=== PATIENT | male | born 2000 | race Hispanic/Latino ===

== ENCOUNTER 2019-08-30 03:05 | Emergency (ER) | payer BC ==
[~2019-08-30] VITALS: Ht 182.9 cm; Wt 97.5 kg
--- NOTE | 2019-08-30 03:40 | Emergency Department Note ---
History of Present Illnes History of Present Illness Chief Complaint: Eye, Ear, Nose, Throat, Dental History of Present Illness This is a 19 year old male tates he ate pizza Friday at about 1700 and ever since then he has felt like something has been stuck in his throat. Patient states he tested positive for COVID-19 August 16. Patient states he has been coughing due to food in his throat. No distress noted at this time. states is able to drink water and eat foods that are light. Historian: Patient Arrival Mode: Car Onset (how long ago): day(s) (2) Location: throat Quality: foreign body sensation Radiation: Reports non-radiation Severity: moderate Onset quality: sudden Duration (how long): day(s) (2) Timing of current episode: constant Progression: unchanged Chronicity: new Context: Reports recent illness (covid + ); Denies recent surgery Relieving factors: none Exacerbating factors: none Associated symptoms: Reports denies other symptoms Past Medical/Family History Physician Review I have reviewed the patient's past medical and family history. Any updates have been documented here. Past Medical History Recent Fever: No Clinical Suspicion of Infectio: No New/Unexplained Change in Ment: No Other Medical History: SEIZURES Past Surgical History: None Social History Smoking Cessation: Never Smoker Counseling Performed: No Alcohol Use: None Any Illegal Drug Use: No Family History Family history of heart diseas: No Other Last Tetanus: UTD Any Pre-Existing Lines (PICC,: No Review of Systems Review of Systems Constitutional: Reports no symptoms EENTM: Reports as per HPI Cardiovascular: Reports no symptoms Respiratory: Reports no symptoms Gastrointestinal: Reports no symptoms Genitourinary: Reports no symptoms Musculoskeletal: Reports no symptoms Integumentary: Reports no symptoms Neurological: Reports no symptoms Psychological: Reports no symptoms Endocrine: Reports no symptoms Hematological/Lymphatic: Reports no symptoms Physical Exam Related Data Allergies: Coded Allergies: No Known Allergies (Unverified , 08/30/19) Triage Vital Signs Vital Signs Date Time Temp Pulse Resp B/P (MAP) Pulse Ox O2 Delivery O2 Flow Rate FiO2 08/30/19 03:15 98.6 80 20 141/65 100 Room Air Vital signs reviewed: Yes Physical Exam CONSTITUTIONAL Constitutional: Present well-developed, Present well-nourished HENT HENT: Present normocephalic, Present atraumatic, Present oropharynx clear/moist, Present nose normal HENT L/R: Present left ext ear normal, Present right ext ear normal EYES Eyes: Reports PERRL, Reports conjunctivae normal NECK Neck: Present ROM normal PULMONARY Pulmonary: Present effort normal, Present breath sounds normal CARDIOVASCULAR Cardiovascular: Present regular rhythm, Present heart sounds normal, Present capillary refill normal, Present normal rate GASTROINTESTINAL Abdominal: Present soft, Present nontender, Present bowel sounds normal GENITOURINARY Genitourinary: Present exam deferred SKIN Skin: Present warm, Present dry MUSCULOSKELETAL Musculoskeletal: Present ROM normal NEUROLOGICAL Neurological: Present alert, Present oriented x 3, Present no gross motor or sensory deficits PSYCHOLOGICAL Psychological: Present mood/affect normal, Present judgement normal Results Laboratory Lab results reviewed: Yes Assessment & Plan Medical Decision Making MDM pt with foreign body sensation(stuck food) in throat ct soft tissue neck ordered to eval for food bolus lodged in throat Assessment & Plan Final Impression: (1) Foreign body sensation in throat Depart Disposition: HOME, SELF-CARE Last Vital Signs Date Time Temp Pulse Resp B/P (MAP) Pulse Ox O2 Delivery O2 Flow Rate FiO2 08/30/19 03:21 74 20 123/77 100 08/30/19 03:15 98.6 Room Air MILES HARGROVE MD Aug 30, 2019 03:40
--- NOTE | 2019-08-30 05:25 | Diagnostic Imaging Report ---
Examination:CT SOFT TISSUE NECK WO History: Foreign body sensation. Comparison studies: None Technique: Axial images from the skull base to the thoracic inlet with coronal and sagittal reformats. Dose modulation, iterative reconstruction, and/or weight based adjustment of the mA/kV was utilized to reduce the radiation dose to as low as reasonably achievable. Findings: Evaluation of the neck is limited due to the absence of intravenous contrast. In spite of this limitation, Soft tissues: No abnormalities. Aerodigestive tract: No abnormality. Lymph nodes: No radiographically significant adenopathy. Thyroid gland: Normal in size and homogeneous. Submandibular glands: Normal in size and homogeneous. Parotid glands: Normal in size and homogeneous. Orbits: No abnormalities. Paranasal sinuses: Clear. Temporal bones: No abnormalities. Skull base and facial bones: Intact. Cervical spine: No disc bulge or herniation or foraminal or canal stenosis. IMPRESSION: No radiopaque foreign body in the pharynx or larynx. 1. Signed by: Dr. Rola Roque M.D. on 08/30/2019 5:22 AM
== END 2019-08-30 06:22 | disposition home or self-care (01) ==
LOC: ER 03:33
DX: R09.89 Other specified symptoms and signs involving the circulatory and respiratory systems (principal)
CPT/HCPCS: 70490; 99283

== ENCOUNTER → 2019-10-19 | Day surgery (SDC) | payer BC ==
[~2019-10-19] MED LIST: FENTANYL CITRATE/PF 100MCG/2 ML INJ ONE; HYDROXYZINE HCL25 MG PO; LIDOCAINE HCL 2% LOCAL INJ 5 ML SDV VIAL INJ ONE; METOCLOPRAMIDE HCL 10 MG/2ML VIAL ONE; METOCLOPRAMIDE10 MG PO; MIDAZOLAM HCL 2 MG/2 ML VIAL ONE; PANTOPRAZOLE 40 MG 10ML VIAL ONE; PROPOFOL IV EMULSION 10 MG/ML 20 ML VIAL ONE; PROTONIX20 MG PO; [UNRECOGNIZED DRUG - REMARK] PO
[2019-10-19 16:00] VITALS: BP 115/70
--- NOTE | 2019-10-19 16:36 | Operative Report ---
DATE OF PROCEDURE: 10/19/2019 SURGEON: Freddie Cervantes MD PROCEDURE: EGD with biopsies. INDICATIONS FOR EGD: Upper abdominal pain, heartburn, excessive belching, bloating. MEDICATIONS: The patient was done under MAC, please see anesthesiologist's note. PROCEDURE IN DETAIL: With the patient in the left lateral decubitus position, a flexible fiberoptic Olympus gastroscope was introduced into the esophagus under direct visualization without any difficulty. An erosion was noted in the distal esophagus. There was a nodule noted at the GE junction that was biopsied. The scope was then advanced with ease into the stomach. Mucosa overlying the antrum and the body revealed some patchy erythema and [id number] edema, and biopsies were obtained and sent to stain for H. pylori. Pylorus was of normal contour and shape, was intubated with ease and the scope was advanced all the way to the second portion of the duodenum. Biopsies were obtained from the proximal second portion and duodenal bulb to rule out sprue. The scope was then withdrawn back into the stomach and retroflexed, and mucosa overlying the fundus and the cardia appeared to be within normal limits. The scope was then straightened out, it was subsequently withdrawn, and the patient tolerated the procedure well. IMPRESSION: 1. Erosive distal esophagitis. 2. Nodule GE junction, biopsied. 3. Gastritis, biopsied, biopsies sent to stain for Helicobacter pylori. 4. Rule out sprue. PLAN: Follow up histology. Increase Protonix to 40 mg one p.o. before meals b.i.d. Freddie Cervantes MD [facility] /[id number] cc: Linden Hopper MD
== END | disposition home or self-care (01) ==
LOC: OR 12:28
PROVIDERS: ATTEND Internal Medicine Gastroenterology
DX: K29.80 Duodenitis without bleeding (principal); K59.09 Other constipation; K21.0 Gastro-esophageal reflux disease with esophagitis; K29.70 Gastritis, unspecified, without bleeding
CPT/HCPCS: 43239; C9113; J2001; J2250; J2704; J2765; J3010

== ENCOUNTER 2019-12-22 11:14 | Emergency (ER) | payer BC ==
[~2019-12-22] VITALS: Ht 180.3 cm; Wt 79.4 kg
--- NOTE | 2019-12-22 11:40 | Emergency Department Note ---
History of Present Illnes History of Present Illness Chief Complaint: Back Pain History of Present Illness This is a 19 year old male Chief Complaint Comment PATIENT IN FROM HOME WITH COMPLAINTS OF LEFT FLANK PAIN, RADIATING TO ABDOMEN AND DOWN LEG; RATES PAIN 8/10. PATIENT RATES PAIN 8/10, DENIES NAUSEA, VOMITING, DIARRHEA, OR URINARY SYMPTOMS. Historian: Patient Arrival Mode: Car Security Consultant Required: No Onset (how long ago): hour(s) (4) Location: R mid back Quality: Sharp Radiation: Reports non-radiation Severity: moderate Onset quality: sudden Duration (how long): hour(s) (4) Timing of current episode: constant Progression: unchanged Chronicity: new Context: Denies recent illness, Denies recent surgery Relieving factors: none Exacerbating factors: none Associated symptoms: Reports denies other symptoms Treatments prior to arrival: none Past Medical/Family History Physician Review I have reviewed the patient's past medical and family history. Any updates have been documented here. Past Medical History Recent Fever: No Clinical Suspicion of Infectio: Yes New/Unexplained Change in Ment: No Past Medical History: Seizure Disorder, GERD Other Medical History: SEIZURES Past Surgical History: None Social History Physically hurt or threatened: No Other Last Tetanus: UTD Review of Systems Review of Systems Constitutional: Reports no symptoms EENTM: Reports no symptoms Cardiovascular: Reports no symptoms Respiratory: Reports no symptoms Gastrointestinal: Reports no symptoms Genitourinary: Reports no symptoms Musculoskeletal: Reports as per HPI Integumentary: Reports no symptoms Neurological: Reports no symptoms Psychological: Reports no symptoms Endocrine: Reports no symptoms Hematological/Lymphatic: Reports no symptoms Physical Exam Related Data Allergies: Coded Allergies: famotidine (Verified Allergy, Severe, SWELLING, 12/22/19) Triage Vital Signs Vital Signs Date Time Temp Pulse Resp B/P (MAP) Pulse Ox O2 Delivery O2 Flow Rate FiO2 12/22/19 11:26 100.1 95 20 132/80 99 Room Air Vital signs reviewed: Yes Physical Exam CONSTITUTIONAL Constitutional: Present well-developed, Present well-nourished HENT HENT: Present normocephalic, Present atraumatic, Present oropharynx clear/moist, Present nose normal HENT L/R: Present left ext ear normal, Present right ext ear normal EYES Eyes: Reports PERRL, Reports conjunctivae normal NECK Neck: Present ROM normal PULMONARY Pulmonary: Present effort normal, Present breath sounds normal CARDIOVASCULAR Cardiovascular: Present regular rhythm, Present heart sounds normal, Present capillary refill normal, Present normal rate GASTROINTESTINAL Abdominal: Present soft, Present nontender, Present bowel sounds normal GENITOURINARY Genitourinary: Present exam deferred SKIN Skin: Present warm, Present dry MUSCULOSKELETAL Musculoskeletal: Present ROM normal, Present other (R mid back pain) NEUROLOGICAL Neurological: Present alert, Present oriented x 3, Present no gross motor or sensory deficits PSYCHOLOGICAL Psychological: Present mood/affect normal, Present judgement normal Results Imaging Imaging results reviewed: Yes Assessment & Plan Medical Decision Making MDM 19 y.o M presents for R mid-right back pain. Woke up with it this morning. Exam shows mild tenderness to the T8 level on R side on ribs. No trauma, no outward signs of trauma. CXR is benign. He has an appointment with Dr. Mera Cervantes at 3:45PM today. He will f/u w/ Dr. Cervantes. Doubt emergent process. Appropriate for DC. Reassessment Reassessment time: 13:18 Reassessment Well appearing, NAD Assessment & Plan Final Impression: (1) Rib pain Depart Disposition: HOME, SELF-CARE Last Vital Signs Date Time Temp Pulse Resp B/P (MAP) Pulse Ox O2 Delivery O2 Flow Rate FiO2 12/22/19 11:26 100.1 95 20 132/80 99 Room Air Home Meds Reported Medications Hydroxyzine Hcl (HYDROXYZINE HCL) 25 Mg Tablet, 10 MG PO PRN, #30 TAB 10/13/19 [Anti-Acid Es] No Conflict Check, 2 TAB PO TID 10/13/19 Pantoprazole Sodium (PROTONIX) 20 Mg Tablet., 40 MG PO DAILY, #30 TAB 10/12/20 Metoclopramide Hcl (METOCLOPRAMIDE HCL) 10 Mg Tablet, 10 MG PO DAILY, TAB //20 IVIS FAJARDO MD Dec 22, 2019 11:40
--- OUTSIDE RECORDS SUMMARY | 2019-12-22 12:09 | XMS REPORT | Clinical Summary ---
Author Author [place] Religion [facility] Religion Address Unknown Phone Unavailable Care Team Providers Care Filter Press Pumper Name Role Phone Asked, No Pcp PCP Unavailable Allergies No Known Active Allergies Medications No known medications Active Problems Not on file Encounters Care Team Description Date Type Specialty Vinay Perez MD Sensation of foreign body (Primary Dx); Anxiety reaction; COVID-19 virus infection 08/31/2019 Emergency Emergency Medicine after 12/21/2018 Social History Date Tobacco Use Types Packs/Day Years Used Never Assessed Sex Assigned at Date Recorded Not on file Last Filed Vital Signs Reading Time Taken Comments Vital Sign 128/84 08/31/2019 3:13 AM CDT Blood Pressure 70 08/31/2019 3:13 AM CDT Pulse 36.5 C (97.7 F) 08/31/2019 3:13 AM CDT Temperature 19 08/31/2019 3:13 AM CDT Respiratory Rate 100% 08/31/2019 3:13 AM CDT Oxygen Saturation - - Inhaled Oxygen Concentration 97.5 kg (215 lb) 08/31/2019 12:41 AM CDT Weight 182.9 cm (6') 08/31/2019 12:41 AM CDT Height 29.16 08/31/2019 12:41 AM CDT Body Mass Index Plan of Treatment Not on file Results Not on fileafter 12/21/2018 Insurance Type Payer Benefit Subscriber ID Effective Phone Address Plan / Dates Group PPO BCBS BCBS [id number] [id number] TWIN guaman PPO/ORA SIMMONS PPO [address] [place] (Home) [place] [id number] Advance Directives For more information, please contact: [phone] 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
--- OUTSIDE RECORDS SUMMARY | 2019-12-22 12:10 | XMS REPORT | Continuity of Care Document ---
Author Author [facility] t Organization [facility] Address [address] [place] [address] [place] [address] [place] [address] Phone Unavailable Care Team Providers Care Signs Cleaner Name Role Phone NO, PCP PCP Unavailable Arnoldo Perez MD Attphys [phone] Lucien HARGROVE Attphys Unavailable Payers Payer Name Policy Type Policy Number Effective Date Expiration Date S nneka BCBSBCBS CHOICE PPO/FEDERAL EMPL [id number] 2014-Pre sentPPO [id number] 2014 00:00:00 [facility] Ppo [id number] 2014 00:00:00 [facility] Problems Condition Name Condition Details Condition Category Status Onset Date Resolution Date Last Treatment Date Treating Clinician Comments Source Anxiety Problem Active [facility] Sensation of foreign body in throat Problem Active [facility] Allergies, Adverse Reactions, Alerts Allergy Name Allergy Type Status Severity Reaction(s) Onset Date Inacti ve Date Treating Clinician Comments Source No Known Allergies DA Active U 2018-10-28 00:00:00 [facility] No Known Allergies DA Active U 2016-01-24 00:00:00 [facility] No Known Allergies DA Active U 2015-09-11 00:00:[address] [facility] Social History Social Habit Start Date Stop Date Quantity Comments Source Sex Assigned At Valorie Tineo Medications This patient has no known medications. Vital Signs Vital Name Observation Time Observation Value Comments Source Systolic blood pressure 2019-08-31 03:13:00 128 mm[Hg] Crow Tineo Diastolic blood pressure 2019-08-31 03:13:00 84 mm[Hg] Crow Tineo Heart rate 2019-08-31 03:13:00 70 /min Crow Tineo Body temperature 2019-08-31 03:13:00 36.5 Rubi [place] Respiratory rate 2019-08-31 03:13:00 19 /min [place] Oxygen saturation in Arterial blood by Pulse oximetry 08-30 03:13:00 100 /min Crow Tineo Body height 2019-08-31 00:41:00 182.9 cm [place] Body weight 2019-08-31 00:41:00 97.523 kg [place] BMI 2019-08-31 00:41:00 29.16 kg/m2 [facility] Weight 2019-08-30 03:15:00 215 [lb_av] [facility] BMI (Body Mass Index) 2019-08-30 03:15:00 29.2 kg/m2 [facility] Procedures Procedure Date / Time Performed Performing Clinician Moy e Computed tomography of soft tissues of neck without co ntrast 2019-08-30 00:00:[address] [facility] [place] [place] Plan of Care Planned Activity Planned Date Details Comments Source Instructions COVID-19: 04/26/2019 [facility] Encounters Start Date/Time End Date/Time Encounter Type Admission Type Attendi RUST Care Department Encounter ID Source 2019-08-31 00:00:00 2019-08-31 00:00:00 Emergency JOEL PEREZ [facility] 064 [id number] [place] 2019-08-30 03:33:00 2019-08-30 06:22:00 Departed Emergency Room 1 MILES HARGROVE [facility] [id number] [facility] Results Test Description Test Time Test Comments Results Result Comments Source URINALYSIS COMPLETE 2019-10-11 19:50:00 Test Item UA COLOR (test code = COLU) YELLOW YELLOW UA APPEARANCE (test code = APPU) CLEAR CLEAR UA GLUCOSE DIPSTICK (test code = DGLUU) NEGATIVE mg/dL NEGATIVE UA BILIRUBIN DIPSTICK (test code = BILU) NEGATIVE mg/dL NEGATIVE UA KETONE DIPSTICK (test code = KETU) TRACE mg/dL NEGATIVE A UA SPECIFIC GRAVITY (test code = SGU) 1.024 1.001-1.035 UA BLOOD DIPSTICK (test code = AJIT) Negative mg/dL NEGATIVE UA PH DIPSTICK (test code = HAO) 5.5 5.0-8.0 UA PROTEIN DIPSTICK (test code = PROU) 10 (Trace) mg/dL NEGATIVE A UA UROBILINIOGEN DIPSTICK (test code = URO) Normal mg/dL NEGATIVE UA NITRITE DIPSTICK (test code = FLO) NEGATIVE NEGATIVE UA LEUKOCYTE ESTERASE W REFLEX (test code = LEUUR) NEGATIVE [place]/uL NEGATIVE UA WBC (test code = WBCU) 0-5 per HPF 0-5 UA RBC (test code = RBCU) 0-2 #/HPF 0-5 UA EPITHELIAL CELLS (test code = EPIU) None seen per HPF FEW UA BACTERIA (test code = BACU) NONE SEEN #/HPF NONE UA MUCUS (test code = MUCU) MODERATE #/LPF FEW A Urine Source? Clean CatchBASIC METABOLIC [id number] 16:52:00* Test Item Value Reference Range Interpretation Comments SODIUM (test code = NA) 141 mmol/L 136-145 N POTASSIUM (test code = K) 3.5 mmol/L 3.5-5.1 N CHLORIDE (test code = CL) 107.0 mmol/L 98-107 N CARBON DIOXIDE (test code = CO2) 25.0 mmol/L 21-32 N ANION GAP (test code = GAP) 12.5 10-20 N GLUCOSE (test code = GLU) 82 mg/dL 74-106 N BLOOD UREA NITROGEN (test code = BUN) 11 mg/dL 7-18 N GLOMERULAR FILTRATION RATE (test code = GFR) > 60 mL/min >=60 Estimated GFR by using Modified MDRD formula.Chronic kidney disease is defined as either kidney damageor GFR <60 mL/min/1.73 m2 for >3 months. CREATININE (test code = CREAT) 1.00 mg/dL 0.7-1.3 N BUN/CREATININE RATIO (test code = BUN/CREA) 11.3 10-20 N CALCIUM (test code = CA) 9.5 mg/dL 8.5-10.1 N HEPATIC FUNCTION [id number] 16:52:00* Test Item Value Reference Range Interpretation Comments TOTAL PROTEIN (test code = PROT) 7.7 gram/dL 6.4-8.2 N ALBUMIN (test code = ALB) 3.9 g/dL 3.4-5.0 N GLOBULIN (test code = GLOB) 3.8 gram/dL 2.7-4.2 N ALBUMIN/GLOBULIN RATIO (test code = A/G) 1.0 0.75-1.50 N BILIRUBIN TOTAL (test code = BILT) 1.00 mg/dL 0.0-1.0 N BILIRUBIN DIRECT (test code = BILD) 0.28 mg/dL 0.0-0.20 H SGOT/AST (test code = AST) 15 IUnit/L 15-37 N SGPT/ALT (test code = ALT) 20 IUnit/L 12-78 N ALKALINE PHOSPHATASE TOTAL (test code = ALKP) 59 IUnit/L 45-117 N Note change in reference range due to change in reagent. [id number] 16:52:00* Test Item Value Reference Range Interpretation Comments LIPASE (test code = LIP) 130 U/L 73.0-393.0 N BASIC METABOLIC [id number] 16:48:00* Test Item Value Reference Range Interpretation Comments SODIUM (test code = NA) 141 mmol/L 136-145 N POTASSIUM (test code = K) 3.5 mmol/L 3.5-5.1 N CHLORIDE (test code = CL) 107.0 mmol/L 98-107 N CARBON DIOXIDE (test code = CO2) mmol/L 21-32 ANION GAP (test code = GAP) 10-20 GLUCOSE (test code = GLU) mg/dL 74-106 BLOOD UREA NITROGEN (test code = BUN) mg/dL 7-18 GLOMERULAR FILTRATION RATE (test code = GFR) mL/min >=60 CREATININE (test code = CREAT) mg/dL 0.7-1.3 BUN/CREATININE RATIO (test code = BUN/CREA) 10-20 CALCIUM (test code = CA) mg/dL 8.5-10.1 HEPATIC FUNCTION [id number] 16:48:00* Test Item Value Reference Range Interpretation Comments TOTAL PROTEIN (test code = PROT) gram/dL 6.4-8.2 ALBUMIN (test code = ALB) g/dL 3.4-5.0 GLOBULIN (test code = GLOB) gram/dL 2.7-4.2 ALBUMIN/GLOBULIN RATIO (test code = A/G) 0.75-1.50 BILIRUBIN TOTAL (test code = BILT) mg/dL 0.0-1.0 BILIRUBIN DIRECT (test code = BILD) mg/dL 0.0-0.20 SGOT/AST (test code = AST) IUnit/L 15-37 SGPT/ALT (test code = ALT) IUnit/L 12-78 ALKALINE PHOSPHATASE TOTAL (test code = ALKP) IUnit/L 45-117 [id number] 16:48:00* Test Item Value Reference Range Interpretation Comments LIPASE (test code = LIP) U/L 73.0-393.0 CBC W/O [id number] 16:35:00* Test Item Value Reference Range Interpretation Comments WHITE BLOOD CELL (test code = WBC) 6.5 K/mm3 4.5-12.5 N RED BLOOD CELL (test code = RBC) 5.54 mill/mm3 4.0-5.8 N HEMOGLOBIN (test code = HGB) 15.0 gram/dL 13.0-17.5 N HEMATOCRIT (test code = HCT) 46.3 % 42.0-52.0 N MEAN CELL VOLUME (test code = MCV) 83.6 fL 80-98 N MEAN CELL HGB (test code = MCH) 27.1 picogram 27.0-33.0 N MEAN CELL HGB CONCETRATION (test code = MCHC) 32.4 gram/dL 33.0-36. 0 L RED CELL DISTRIBUTION WIDTH (test code = RDW) 13.7 % 11.6-16. 2 N PLATELET COUNT (test code = PLT) 251 K/mm3 150-450 N MEAN PLATELET VOLUME (test code = MPV) 9.1 fL 6.7-11.0 N CBC W/O [id number] 16:32:00* Test Item Value Reference Range Interpretation Comments WHITE BLOOD CELL (test code = WBC) K/mm3 4.5-12.5 RED BLOOD CELL (test code = RBC) mill/mm3 4.0-5.8 HEMOGLOBIN (test code = HGB) 15.0 gram/dL 13.0-17.5 N HEMATOCRIT (test code = HCT) 46.3 % 42.0-52.0 N MEAN CELL VOLUME (test code = MCV) fL 80-98 MEAN CELL HGB (test code = MCH) picogram 27.0-33.0 MEAN CELL HGB CONCETRATION (test code = MCHC) gram/dL 33.0-36. 0 RED CELL DISTRIBUTION WIDTH (test code = RDW) % 11.6-16. 2 PLATELET COUNT (test code = PLT) 251 K/mm3 150-450 N MEAN PLATELET VOLUME (test code = MPV) fL 6.7-11.0 BASIC METABOLIC [id number] 17:41:00* Test Item Value Reference Range Interpretation Comments SODIUM (test code = NA) 141 mmol/L 136-145 N POTASSIUM (test code = K) 3.1 mmol/L 3.5-5.1 L CHLORIDE (test code = CL) 106.0 mmol/L 98-107 N CARBON DIOXIDE (test code = CO2) 23.0 mmol/L 21-32 N ANION GAP (test code = GAP) 15.1 10-20 N GLUCOSE (test code = GLU) 106 mg/dL 74-106 N BLOOD UREA NITROGEN (test code = BUN) 9 mg/dL 7-18 N GLOMERULAR FILTRATION RATE (test code = GFR) > 60 mL/min >=60 Estimated GFR by using Modified MDRD formula.Chronic kidney disease is defined as either kidney damageor GFR <60 mL/min/1.73 m2 for >3 months. CREATININE (test code = CREAT) 1.00 mg/dL 0.7-1.3 N BUN/CREATININE RATIO (test code = BUN/CREA) 9.4 10-20 L CALCIUM (test code = CA) 9.5 mg/dL 8.5-10.1 N [id number] 17:41:00* Test Item Value Reference Range Interpretation Comments TROPONIN-I (test code = TROPI) <0.015 ng/mL 0-0.045 N BASIC METABOLIC [id number] 17:30:00* Test Item Value Reference Range Interpretation Comments SODIUM (test code = NA) 141 mmol/L 136-145 N POTASSIUM (test code = K) 3.1 mmol/L 3.5-5.1 L CHLORIDE (test code = CL) 106.0 mmol/L 98-107 N CARBON DIOXIDE (test code = CO2) mmol/L 21-32 ANION GAP (test code = GAP) 10-20 GLUCOSE (test code = GLU) mg/dL 74-106 BLOOD UREA NITROGEN (test code = BUN) mg/dL 7-18 GLOMERULAR FILTRATION RATE (test code = GFR) mL/min >=60 CREATININE (test code = CREAT) mg/dL 0.7-1.3 BUN/CREATININE RATIO (test code = BUN/CREA) 10-20 CALCIUM (test code = CA) mg/dL 8.5-10.1 [id number] 17:30:00* Test Item Value Reference Range Interpretation Comments TROPONIN-I (test code = TROPI) ng/mL 0-0.045 CBC W/O [id number] 17:20:00* Test Item Value Reference Range Interpretation Comments WHITE BLOOD CELL (test code = WBC) 5.3 K/mm3 4.5-12.5 N RED BLOOD CELL (test code = RBC) 5.38 mill/mm3 4.0-5.8 N HEMOGLOBIN (test code = HGB) 14.9 gram/dL 13.0-17.5 N HEMATOCRIT (test code = HCT) 44.6 % 42.0-52.0 N MEAN CELL VOLUME (test code = MCV) 82.9 fL 80-98 N MEAN CELL HGB (test code = MCH) 27.7 picogram 27.0-33.0 N MEAN CELL HGB CONCETRATION (test code = MCHC) 33.4 gram/dL 33.0-36. 0 N RED CELL DISTRIBUTION WIDTH (test code = RDW) 13.6 % 11.6-16. 2 N PLATELET COUNT (test code = PLT) 280 K/mm3 150-450 N MEAN PLATELET VOLUME (test code = MPV) 9.3 fL 6.7-11.0 N - XR CHEST 1 [id number] 17:14:00 FAX: Desiree Diamond [phone] [place]: B St: REG FAX: Tu Shrestha [phone] Name: DORY PATRICIA [facility] : 2000 Age/S: 19/M [address] [facility] Unit #: [id number] Loc: [place] [address] Phys: Tu Shrestha MD Acct: [id number] Dis Date: Status: REG ER PHONE #: [phone] Exam Date: 10/03/2019 1709 FAX #: [phone] Reason: CHEST PAIN EXAMS: CPT CODE: [id number] XR CHEST 1 V 22470 EXAM: Chest X-ray, 1 view; CLINICAL HISTORY: Chest pain, anxiety attack; FINDINGS: The lungs are clear, no infiltrates, no edema; no effusions; no pneumothorax; normal cardiomediastinal silhouette. IMPRESSION: Normal chest x-ray. Location code: GW at 1714 Reported and signed by: Hal Flores M.D. CC: Desiree Taylor MD; Tu Shrestha MD chnologist: Ifrah Vo(Glendy) Trnscrd Date/ Time/By: 10/03/2019 (1714) : By: GisselleGRW Orig Print D/T: S: 10/03/19 20 (5366) PAGE [address] SOFT TISSUE NECK [id number] 05:18:00 [place] [address] Patient Name: DORY PATRICIA MR #: [id number] : 2000 Age/Sex: 19/M Req #: [id number] [facility] Physician: Ordered by: MILES HARGROVE MD Report #: [id number] Location: ER Room/Bed: Procedure: [id number] CT/CT SOFT TISSUE NECK WO Exam Date: 08/30/19 Exam T camila: 0400 REPORT STATUS: Signed Examination:CT SOFT TISSUE NECK WO History: Foreign body sensation. Comp arison studies: None Technique: Axial images from the skull base to the thoracic inlet with coronal and sagittal reformats. Dose modulation, iterati ve reconstruction, and/or weight based adjustment of the mA/kV was utilized to reduce the radiation dose to as low as reasonably achievable. Findings: Evaluation of the neck is limited due to the absence of intravenous contra st. In spite of this limitation, Soft tissues: No abnormalities. A erodigestive tract: No abnormality. Lymph nodes: No radiographically s ignificant adenopathy. Thyroid gland: Normal in size and homogeneous. Submandibular glands: Normal in size and homogeneous. Parotid glands: Normal in size and homogeneous. Orbits: No abnormalities. Paranasal sin uses: Clear. Temporal bones: No abnormalities. Skull base and facial bones: Intact. Cervical spine: No disc bulge or herniation or foraminal or can al stenosis. IMPRESSION: No radiopaque foreign body in the pharynx or larynx. 1. Signed by: Dr. Zeferino Roque M.D. on 08/30/2019 5:22 AM Dictated By: ZEFERINO LIMON MD 1 Transcribed By: KARRIE on 08/30/19521 COPY TO: MILES HARGROVE MD - XR CHEST 1 [id number] 10:55:00 Name: DORY PATRICIA [facility] : 2000 Age/S:19 /M [address] [facility] Unit#:[id number] Loc: [place] [address] Phys: Sarah Riggins MD Dis Date: PHONE #: [phone] Status: REG ER FAX #: [phone] Exam Date: 08/24/2019 Re ason: SOB EXAMS: CPT CODE: [id number] XR CHEST 1 V [id number] REASON FOR EXAM: SOB EXAM ORDER DATE: 08/24/2019 10:13 AM Ordering: Eugenio mejia MD Attending:Eugenio Riggins MD Location:[facility] PROCEDURE: - XR CHEST 1 V COMPARISON: FINDINGS: Portable AP frontal view of the chest obtained at 10:31 AM shows clear crista gs without evidence of consolidation. There is no evidence of effusion. Th e heart size is within normal limits. Pulmonary vasculatures are unremarka ble. IMPRESSION: No active disease. at 1055 Reported an d signed by: Joel Estrada M.D. CC: Desiree Taylor MD; Eugenio Villaseñor MD Technologist: Concetta Morrissey RT(R)(CT) Trnscrpt Data: 08/24/2019 (1053) t.SDR.VTL Orig Print D/T: S: 08/24/2019 (6573) PAGE 1 Signed Report URINALYSIS COMPLETE 2019-08-22 15:31:00* Test Item Value Reference Range Interpretation Comments UA COLOR (test code = COLU) DARK YELLOW YELLOW A UA APPEARANCE (test code = APPU) CLEAR CLEAR UA GLUCOSE DIPSTICK (test code = DGLUU) norm mg/dL NEGATIVE UA BILIRUBIN DIPSTICK (test code = BILU) NEGATIVE mg/dL NEGATIVE UA KETONE DIPSTICK (test code = KETU) 50 (2+) mg/dL NEGATIVE A UA SPECIFIC GRAVITY (test code = SGU) 1.010 1.001-1.035 UA BLOOD DIPSTICK (test code = AJIT) neg Anderson/uL NEGATIVE UA PH DIPSTICK (test code = HAO) 6.5 5.0-8.0 UA PROTEIN DIPSTICK (test code = PROU) neg mg/dL Neg-15 UA UROBILINIOGEN DIPSTICK (test code = URO) norm mg/dL 0.0-0.2 UA NITRITE DIPSTICK (test code = FLO) NEGATIVE NEGATIVE UA LEUKOCYTE ESTERASE DIPSTICK (test code = LEUU) neg uL NEGA TIVE UA WBC (test code = WBCU) 0-2 per HPF 0-5 UA RBC (test code = RBCU) NONE SEEN per HPF 0-5 UA EPITHELIAL CELLS (test code = EPIU) Rare (0-1/hpf) per HPF Few UA BACTERIA (test code = BACU) FEW per HPF NONE Urine Source? Clean CatchDRUGS OF ABUSE SCREEN [id number] 15:31:00* Test Item Value Reference Range Interpretation Comments URN COCAINE (test code = COCAURN) NEGATIVE NEGATIVE URN CANNABINOIDS (test code = CANNABURN) NEGATIVE NEGATIVE URN AMPHETAMINE (test code = AMPHETURN) NEGATIVE NEGATIVE URN BARBITURATE (test code = BARBITURN) NEGATIVE NEGATIVE URN BENZODIAZEPINE (test code = BENZOURN) NEGATIVE NEGATIVE URN OPIATES (test code = OPIATURN) NEGATIVE NEGATIVE URN PHENCYCLIDINE (PCP) (test code = PHENCURN) NEGATIVE NEGATIV E Urine Source? Clean CatchURINALYSIS [id number] 15:29:00* Test Item Value Reference Range Interpretation Comments UA COLOR (test code = COLU) DARK YELLOW YELLOW A UA APPEARANCE (test code = APPU) CLEAR CLEAR UA GLUCOSE DIPSTICK (test code = DGLUU) norm mg/dL NEGATIVE UA BILIRUBIN DIPSTICK (test code = BILU) NEGATIVE mg/dL NEGATIVE UA KETONE DIPSTICK (test code = KETU) 50 (2+) mg/dL NEGATIVE A UA SPECIFIC GRAVITY (test code = SGU) 1.010 1.001-1.035 UA BLOOD DIPSTICK (test code = AJIT) neg Anderson/uL NEGATIVE UA PH DIPSTICK (test code = HAO) 6.5 5.0-8.0 UA PROTEIN DIPSTICK (test code = PROU) neg mg/dL Neg-15 UA UROBILINIOGEN DIPSTICK (test code = URO) norm mg/dL 0.0-0.2 UA NITRITE DIPSTICK (test code = FLO) NEGATIVE NEGATIVE UA LEUKOCYTE ESTERASE DIPSTICK (test code = LEUU) neg uL NEGA TIVE UA WBC (test code = WBCU) 0-2 per HPF 0-5 UA RBC (test code = RBCU) NONE SEEN per HPF 0-5 UA EPITHELIAL CELLS (test code = EPIU) Rare (0-1/hpf) per HPF Few UA BACTERIA (test code = BACU) FEW per HPF NONE Urine Source? Clean CatchDRUGS OF ABUSE SCREEN [id number] 15:29:00* Test Item Value Reference Range Interpretation Comments URN COCAINE (test code = COCAURN) NEGATIVE URN CANNABINOIDS (test code = CANNABURN) NEGATIVE URN AMPHETAMINE (test code = AMPHETURN) NEGATIVE URN BARBITURATE (test code = BARBITURN) NEGATIVE URN BENZODIAZEPINE (test code = BENZOURN) NEGATIVE URN OPIATES (test code = OPIATURN) NEGATIVE URN PHENCYCLIDINE (PCP) (test code = PHENCURN) NEGATIV E Urine Source? Clean CatchCOMPREHENSIVE METABOLIC [id number] 14:50:00* Test Item Value Reference Range Interpretation Comments SODIUM (test code = NA) 139 mmol/L 135-148 N POTASSIUM (test code = K) 3.2 mmol/L 3.5-5.1 L CHLORIDE (test code = CL) 101 mmol/L 101-109 N CARBON DIOXIDE (test code = CO2) 22.8 mmol/L 21-32 N ANION GAP (test code = GAP) 18 mmol/L 10-20 N GLUCOSE (test code = GLU) 115 mg/dL 74-106 H BLOOD UREA NITROGEN (test code = BUN) 10 mg/dL 3-21 N CREATININE (test code = CREAT) 1.25 mg/dL 0.55-1.3 N BUN/CREATININE RATIO (test code = BUN/CREA) 8.0 10-20 L TOTAL PROTEIN (test code = PROT) 7.9 g/dL 6.5-8.4 N ALBUMIN (test code = ALB) 4.4 g/dL 3.4-4.8 N GLOBULIN (test code = GLOB) 3.5 G/DL 1-10 N ALBUMIN/GLOBULIN RATIO (test code = A/G) 1.3 RATIO 0.75-1.50 N CALCIUM (test code = CA) 8.9 mg/dL 8.4-10.2 N BILIRUBIN TOTAL (test code = BILT) 0.90 mg/dL 0.0-1.0 N SGOT/AST (test code = AST) 16 U/L 6-32 N SGPT/ALT (test code = ALT) 31 U/L 12-78 N N ote: Change in REFERENCE RANGE due to new reagent method. ALKALINE PHOSPHATASE TOTAL (test code = ALKP) 67 U/L 38-126 N CREATINE KINASE (CK)2019-08-22 14:50:00* Test Item Value Reference Range Interpretation Comments CREATINE KINASE (CK) (test code = CK) 72 U/L 39-308 N COMPREHENSIVE METABOLIC [id number] 14:44:00* Test Item Value Reference Range Interpretation Comments SODIUM (test code = NA) 139 mmol/L 135-148 N POTASSIUM (test code = K) 3.2 mmol/L 3.5-5.1 L CHLORIDE (test code = CL) 101 mmol/L 101-109 N CARBON DIOXIDE (test code = CO2) 22.8 mmol/L 21-32 N ANION GAP (test code = GAP) 18 mmol/L 10-20 N GLUCOSE (test code = GLU) 115 mg/dL 74-106 H BLOOD UREA NITROGEN (test code = BUN) 10 mg/dL 3-21 N CREATININE (test code = CREAT) 1.25 mg/dL 0.55-1.3 N BUN/CREATININE RATIO (test code = BUN/CREA) 8.0 10-20 L TOTAL PROTEIN (test code = PROT) gram/dL 6.4-8.2 ALBUMIN (test code = ALB) g/dL 3.4-5.0 GLOBULIN (test code = GLOB) g/dL 2.7-4.2 ALBUMIN/GLOBULIN RATIO (test code = A/G) 0.75-1.50 CALCIUM (test code = CA) 8.9 mg/dL 8.4-10.2 N BILIRUBIN TOTAL (test code = BILT) mg/dL 0.2-1.2 SGOT/AST (test code = AST) IUnit/L 15-37 SGPT/ALT (test code = ALT) U/L 10-69 ALKALINE PHOSPHATASE TOTAL (test code = ALKP) IUnit/L 45-117 CREATINE KINASE (CK)2019-08-22 14:44:00* Test Item Value Reference Range Interpretation Comments CREATINE KINASE (CK) (test code = CK) IUnit/L 26-208 CBC W/AUTO [id number] 14:32:00* Test Item Value Reference Range Interpretation Comments WHITE BLOOD CELL (test code = WBC) 8.9 K/mm3 4.5-12.5 N RED BLOOD CELL (test code = RBC) 5.56 mill/mm3 4.0-5.8 N HEMOGLOBIN (test code = HGB) 15.3 gram/dL 13.0-17.5 N HEMATOCRIT (test code = HCT) 45.5 % 42.0-52.0 N MEAN CELL VOLUME (test code = MCV) 81.8 fL 80-98 N MEAN CELL HGB (test code = MCH) 27.5 picogram 27.0-33.0 N MEAN CELL HGB CONCETRATION (test code = MCHC) 33.6 gram/dL 33.0-36. 0 N RED CELL DISTRIBUTION WIDTH (test code = RDW) 12.9 % 11.6-16. 2 N RED CELL DISTRIBUTION WIDTH SD (test code = RDW-SD) 39.5 fL 37 .0-51.0 N PLATELET COUNT (test code = PLT) 309 K/mm3 150-450 N MEAN PLATELET VOLUME (test code = MPV) 8.5 fL 6.7-11.0 N NEUTROPHIL % (test code = NT%) 72.9 % 39.0-69.0 H LYMPHOCYTE % (test code = LY%) 20.8 % 25.0-55.0 L MONOCYTE % (test code = MO%) 5.4 % 0.0-10.0 N EOSINOPHIL % (test code = EO%) 0.2 % 0.0-5.0 N BASOPHIL % (test code = BA%) 0.3 % 0.0-1.0 N NEUTROPHIL # (test code = NT#) 6.47 K/mm3 1.8-7.7 N LYMPHOCYTE # (test code = LY#) 1.85 K/mm3 1.0-5.0 N MONOCYTE # (test code = MO#) 0.48 K/mm3 0-0.8 N EOSINOPHIL # (test code = EO#) 0.02 K/mm3 0.0-0.5 N BASOPHIL # (test code = BA#) 0.03 K/mm3 0.0-0.2 N MANUAL DIFF REQUIRED (test code = MDIFF) NO - XR CHEST 1 [id number] 14:00:00 Name: DORY PATRICIA [facility] : 2000 Age/S:19 /M [address] [facility] Unit#:[id number] Loc: [place] [address] Phys: Antonieta Chakraborty MD Dis Date: PHONE #: [phone] Status: PRE ER FAX #: [phone] Exam Date: 08/22/2019 Reason: sob, fever EXAMS: CPT CODE: [id number] XR CHEST 1 V 61886 HISTORY: Shortness of breath and fever. COMPARISON: September 27, 2015. Location: . No acute infiltrates, effusion or congestion is noted. The cardiac and mediastinal silhouette are within normal limits. IMPRESSION: No acute infiltrates, effusion or congestion. at 1400 Reported and signed by: Kiko Ramirez M.D. CC: Desiree Taylor MD; Antonieta Chakraborty MD Technologist: Monie Bowser Trnscrpt Data: 08/22/2019 (1400) [email or web address] Orig Print D/T: S: 08/22/2019 (9757) PAGE 1 Signed Report Comprehensive Metabolic [id number] 01:53:21* Test Item Value Reference Range Interpretation Comments Sodium Level (test code = Sodium Level) 144.0 mmol/L 135.0-145.0 Potassium Level (test code = Potassium Level) 3.8 mmol/L 3.5-5.1 Chloride Level (test code = Chloride Level) 105 mmol/L 98-105 CO2 (test code = CO2) 26 mmol/L 22-29 Anion Gap (test code = Anion Gap) 13 mmol/L 7-16 BUN (test code = BUN) 14.50 mg/dL 6.00-20.00 Creatinine Level (test code = Creatinine Level) 1.00 mg/dL 0.70-1 .20 BUN/Creat Ratio (test code = BUN/Creat Ratio) 14 N Glucose Level (test code = Glucose Level) 86 mg/dL 70-115 Calcium Level (test code = Calcium Level) 9.9 mg/dL 8.3-10.5 Alk Phos (test code = Alk Phos) 74 U/L 40-129 Bilirubin Total (test code = Bilirubin Total) 0.4 mg/dL 0.1-0.9 Albumin Level (test code = Albumin Level) 5.2 g/dL 3.5-5.2 Protein Total (test code = Protein Total) 7.9 g/dL 6.4-8.3 ALT (test code = ALT) 29 U/L 1-41 AST (test code = AST) 33 U/L 1-40 Globulin (test code = Globulin) 2.7 g/dL 2.9-3.1 L A/G Ratio (test code = A/G Ratio) 1.9 ratio N Comprehensive Metabolic [id number] 01:53:21* Test Item Value Reference Range Interpretation Comments Sodium Level (test code = Sodium Level) 144.0 mmol/L 135.0-145.0 Potassium Level (test code = Potassium Level) 3.8 mmol/L 3.5-5.1 Chloride Level (test code = Chloride Level) 105 mmol/L 98-105 CO2 (test code = CO2) 26 mmol/L 22-29 Anion Gap (test code = Anion Gap) 13 mmol/L 7-16 BUN (test code = BUN) 14.50 mg/dL 6.00-20.00 Creatinine Level (test code = Creatinine Level) 1.00 mg/dL 0.70-1 .20 BUN/Creat Ratio (test code = BUN/Creat Ratio) 14 N Glucose Level (test code = Glucose Level) 86 mg/dL 70-115 Calcium Level (test code = Calcium Level) 9.9 mg/dL 8.3-10.5 Alk Phos (test code = Alk Phos) 74 U/L 40-129 Bilirubin Total (test code = Bilirubin Total) 0.4 mg/dL 0.1-0.9 Albumin Level (test code = Albumin Level) 5.2 g/dL 3.5-5.2 Protein Total (test code = Protein Total) 7.9 g/dL 6.4-8.3 ALT (test code = ALT) 29 U/L 1-41 AST (test code = AST) 33 U/L 1-40 Globulin (test code = Globulin) 2.7 g/dL 2.9-3.1 L A/G Ratio (test code = A/G Ratio) 1.9 ratio N eGFR AA (test code = eGFR AA) >60 mL/min/1.73 m2 N eGFR (estimated Glomerular Filtration Rate) is an estimated value, calculated from the patient's serum creatinine using the MDRD equation. It is NOT the patient's actual GFR. The eGFR provides a more clinically useful measure of kidney disease than serum creatinine alone.This calculation takes sex and race into account, if the information is provided. If the race is not provided, and the patient is -[place], multiply by 1.212. If sex is not provided, and the patient is female, multiply by 0.742. Results for patients <18 years of age have not been validated by the MDRD study and should be interpreted with caution. eGFR Result Interpretation:eGFR > or = 60 is in the Normal RangeeGFR < 60 may mean kidney diseaseeGFR < 15 may mean kidney failure Ranges recommended by the National Kidney Foundation, http://nkdep.nih.gov Alcohol [id number] 01:53:21* Test Item Value Reference Range Interpretation Comments Ethanol Level (test code = Ethanol Level) <0.00 g/dL 0.00-0.01 Intoxicated 0.080 g/dL or more Ethanol Inst (test code = Ethanol Inst) <0 N Comprehensive Metabolic [id number] 01:53:21* Test Item Value Reference Range Interpretation Comments Sodium Level (test code = Sodium Level) 144.0 mmol/L 135.0-145.0 Potassium Level (test code = Potassium Level) 3.8 mmol/L 3.5-5.1 Chloride Level (test code = Chloride Level) 105 mmol/L 98-105 CO2 (test code = CO2) 26 mmol/L 22-29 Anion Gap (test code = Anion Gap) 13 mmol/L 7-16 BUN (test code = BUN) 14.50 mg/dL 6.00-20.00 Creatinine Level (test code = Creatinine Level) 1.00 mg/dL 0.70-1 .20 BUN/Creat Ratio (test code = BUN/Creat Ratio) 14 N Glucose Level (test code = Glucose Level) 86 mg/dL 70-115 Calcium Level (test code = Calcium Level) 9.9 mg/dL 8.3-10.5 Alk Phos (test code = Alk Phos) 74 U/L 40-129 Bilirubin Total (test code = Bilirubin Total) 0.4 mg/dL 0.1-0.9 Albumin Level (test code = Albumin Level) 5.2 g/dL 3.5-5.2 Protein Total (test code = Protein Total) 7.9 g/dL 6.4-8.3 ALT (test code = ALT) 29 U/L 1-41 AST (test code = AST) 33 U/L 1-40 Globulin (test code = Globulin) 2.7 g/dL 2.9-3.1 L A/G Ratio (test code = A/G Ratio) 1.9 ratio N eGFR AA (test code = eGFR AA) >60 mL/min/1.73 m2 N eGFR (estimated Glomerular Filtration Rate) is an estimated value, calculated from the patient's serum creatinine using the MDRD equation. It is NOT the patient's actual GFR. The eGFR provides a more clinically useful measure of kidney disease than serum creatinine alone.This calculation takes sex and race into account, if the information is provided. If the race is not provided, and the patient is -[place], multiply by 1.212. If sex is not provided, and the patient is female, multiply by 0.742. Results for patients <18 years of age have not been validated by the MDRD study and should be interpreted with caution. eGFR Result Interpretation:eGFR > or = 60 is in the Normal RangeeGFR < 60 may mean kidney diseaseeGFR < 15 may mean kidney failure Ranges recommended by the National Kidney Foundation, http://nkdep.nih.gov eGFR Non-AA (test code = eGFR Non-AA) >60.00 mL/min/1.73 m2 N eGFR (estimated Glomerular Filtration Rate) is an estimated value, calculated from the patient's serum creatinine using the MDRD equation. It is NOT the patient's actual GFR. The eGFR provides a more clinically useful measure of kidney disease than serum creatinine alone.This calculation takes sex and race into account, if the information is provided. If the race is not provided, and the patient is -[place], multiply by 1.212. If sex is not provided, and the patient is female, multiply by 0.742. Results for patients <18 years of age have not been validated by the MDRD study and should be interpreted with caution. eGFR Result Interpretation:eGFR > or = 60 is in the Normal RangeeGFR < 60 may mean kidney diseaseeGFR < 15 may mean kidney failure Ranges recommended by the National Kidney Foundation, http://nkdep.nih.gov Automated [id number] 01:38:31* Test Item Value Reference Range Interpretation Comments Neutro Auto (test code = Neutro Auto) 76.4 % 36.0-70.0 H Lymph Auto (test code = Lymph Auto) 14.8 % 12.0-44.0 Live Oak Auto (test code = [place] Auto) 6.9 % 0.0-11.0 Eos, Auto (test code = Eos, Auto) 0.8 % 0.0-7.0 Basophil Auto (test code = Basophil Auto) 0.4 % 0.0-2.0 Neutro Absolute (test code = Neutro Absolute) 8.0 x10 1.6-7.4 H Lymph Absolute (test code = Lymph Absolute) 1.55 x10 .50-4.60 [place] Absolute (test code = [place] Absolute) .72 x10 .00-1.20 Eos Absolute (test code = Eos Absolute) 0.08 x10 0.00-0.74 Baso Absolute (test code = Baso Absolute) 0.04 x10 0.00-0.21 IG [id number] 01:38:31* Test Item Value Reference Range Interpretation Comments IG (test code = IG) 0.7 % 0.0-5.0 IG Abs (test code = IG Abs) 0 x10 N Complete Blood Count with [id number] 01:38:30* Test Item Value Reference Range Interpretation Comments WBC (test code = WBC) 10.5 x10 4.4-10.5 RBC (test code = RBC) 5.67 x10 4.10-5.70 Hgb (test code = Hgb) 15.6 g/dL 13.4-17.4 Hct (test code = Hct) 48.0 % 38.7-52.0 MCV (test code = MCV) 84.70 fL 80.00-100.00 MCHC (test code = MCHC) 32.50 g/dL 32.00-37.50 RDW CV (test code = RDW CV) 13.0 % 11.5-14.5 MCH (test code = MCH) 27.5 pg 27.0-32.5 Platelets (test code = Platelets) 299.0 x10 140.0-440.0 MPV (test code = MPV) 9.0 fL N Slide Review (test code = Slide Review) Auto Auto Result created by [email or web address] nRBC (test code = nRBC) 0 N NRBC Abs (test code = NRBC Abs) 0.00 x10 N IPF (test code = IPF) 0 % N Urine Drug [id number] 01:22:43* Test Item Value Reference Range Interpretation Comments Amphetamine Screen Ur (test code = Amphetamine Screen Ur) Negative Negative Barbiturate Screen Ur (test code = Barbiturate Screen Ur) Negative Negative Benzodiazepines Ur (test code = Benzodiazepines Ur) Negative Ne gative Cocaine Screen Ur (test code = Cocaine Screen Ur) Negative Nega tive U Methadone Scr (test code = U Methadone Scr) Negative Negative Opiate Screen Ur (test code = Opiate Screen Ur) Negative Negati ve U PCP Scrn (test code = U PCP Scrn) Negative Negative Cannabinoid Screen Ur (test code = Cannabinoid Screen Ur) Negative Negative U TCA (test code = U TCA) Negative Negative Th e results of all drug screen tests are only preliminary. Clinical consideration and professional judgment should be applied to any drug of abuse test result, particularly when preliminary positive results are obtained. Please order a separate confirmatory test if desired.
--- NOTE | 2019-12-22 13:05 | Diagnostic Imaging Report ---
Chest, 1 view, 12/22/2019. History: Cough and fever. Comparison: None available. Findings: The cardiomediastinal silhouette and pulmonary vasculature are within normal limits for a portable exam. There is no focal consolidation or pleural effusion. There are no acute osseous or soft tissue abnormalities. Impression: No acute cardiopulmonary abnormality. Signed by: Mohsen Myers on 12/22/2019 1:02 PM
== END 2019-12-22 13:29 | disposition home or self-care (01) ==
LOC: ER 11:45
DX: M54.6 Pain in thoracic spine (principal); R07.81 Pleurodynia; R50.9 Fever, unspecified; G40.909 Epilepsy, unspecified, not intractable, without status epilepticus; K21.9 Gastro-esophageal reflux disease without esophagitis
CPT/HCPCS: 71045; 99283

== ENCOUNTER → 2019-12-22 | Outpatient (CLI) | payer BC ==
[~2019-12-22] MED LIST changes: -FENTANYL CITRATE/PF 100MCG/2 ML INJ ONE; -LIDOCAINE HCL 2% LOCAL INJ 5 ML SDV VIAL INJ ONE; -METOCLOPRAMIDE HCL 10 MG/2ML VIAL ONE; -MIDAZOLAM HCL 2 MG/2 ML VIAL ONE; -PANTOPRAZOLE 40 MG 10ML VIAL ONE; -PROPOFOL IV EMULSION 10 MG/ML 20 ML VIAL ONE
--- NOTE | 2019-12-22 18:34 | Diagnostic Imaging Report ---
EXAM: Right Upper Quadrant Ultrasound INDICATION: UPPER ABD PAIN COMPARISON: None. TECHNIQUE: Transverse and longitudinal images of the right upper abdomen were obtained. FINDINGS: Liver: Size: 12.2 cm in the right midclavicular line, normal Appearance: Normal echogenicity, smooth contour Mass: No focal masses Gallbladder: Stones/Sludge: Small volume sludge. Wall: 0.2 cm Appearance: No wall thickening, pericholecystic fluid or hydrops. Sonographic Castillo's Sign: Negative Bile Ducts: Intrahepatic Ducts: No dilatation Extrahepatic Ducts: Common bile duct measures 0.2 cm, no dilatation Pancreas: Not well visualized due to shadowing from overlying bowel gas. Kidneys: Length: Right 9.4 cm Echogenicity: Normal Collecting System: No hydronephrosis Stone: None Cyst/Mass: None Vessels: Aorta: Proximal aorta not visualized. Mid to distal aorta unremarkable. Inferior Vena Cava: Visualized portions are normal Main Portal Vein: 0.7 cm, normal size with hepatopetal flow. Free Fluid: No ascites or pleural effusion IMPRESSION: 1. Small volume of sludge. No biliary dilatation. 2. Pancreas not well visualized for diagnostic comment. Signed by: Dr. Debbie Mckeon M.D. on 12/22/2019 6:30 PM
== END ==
LOC: US 16:58
PROVIDERS: ATTEND Internal Medicine Gastroenterology
DX: R10.10 Upper abdominal pain, unspecified (principal)
CPT/HCPCS: 76705

== ENCOUNTER → 2019-12-31 | Outpatient (CLI) | payer BC ==
[~2019-12-31] MED LIST changes: +IOPAMIDOL 370 MG/ML 200 ML INFUS..BTL INJ ONE; +SODIUM CHLORIDE 0.9% 50ML 50 ML ONE
== END ==
LOC: CT 11:37
PROVIDERS: ATTEND Internal Medicine Gastroenterology
DX: R22.1 Localized swelling, mass and lump, neck (principal); R13.10 Dysphagia, unspecified
CPT/HCPCS: 70491; Q9967

== ENCOUNTER 2020-01-05 10:08 | Emergency (ER) | payer BC ==
[~2020-01-05] VITALS: Ht 180.3 cm; Wt 78.9 kg
[~2020-01-05 10:08] MED LIST changes: -IOPAMIDOL 370 MG/ML 200 ML INFUS..BTL INJ ONE; -SODIUM CHLORIDE 0.9% 50ML 50 ML ONE
[2020-01-05] MEDS ORDERED: METRONIDAZOLE 500 MG TAB PO ONE (10:30)
[2020-01-05] MEDS ORDERED: AZITHROMYCIN 250 MG TAB PO ONE (10:30)
[2020-01-05] MEDS ORDERED: CEFTRIAXONE SOD 250 MG VIAL IM ONE (10:30)
[2020-01-05] MEDS ORDERED: ONDANSETRON HCL 4 MG ORAL DISINTEGRATING TAB PO ONE (10:30)
--- OUTSIDE RECORDS SUMMARY | 2020-01-05 10:35 | XMS REPORT | Continuity of Care Document ---
Author Author [facility] t Organization [facility] Address [address] [place] [address] Phone Unavailable Care Team Providers Care Disposition Clerk Name Role Phone NO, PCP PCP Unavailable LUIS ANTONIO SANTOS Attphys Unavailable Raúl Sosa Attphys Unavailable Ana LEON, Arnoldo Mclean Attphys [phone] Lucien HARGROVE Attphys Unavailable Payers Payer Name Policy Type Policy Number Effective Date Expiration Date S [facility] Ppo [id number] 2014 00:00:00 [facility] BCBSBCBS CHOICE PPO/FEDERAL EMPL [id number] 2014-Pre sentPPO [id number] 2014 00:00:00 [place] [facility] Problems Condition Name Condition Details Condition Category Status Onset Date Resolution Date Last Treatment Date Treating Clinician Comments Source Anxiety Problem Active [facility] Sensation of foreign body in throat Problem Active [facility] Rib pain Problem Active [facility] Allergies, Adverse Reactions, Alerts Allergy Name Allergy Type Status Severity Reaction(s) Onset Date Inacti ve Date Treating Clinician Comments Source Famotidine Allergy to substance Active Severe SWELLING 2019-12-22 00:0 0:00 [facility] No Known Allergies DA Active U 2018-10-28 00:00[facility]00 [facility] No Known Allergies DA Active U 2016-01-24 00:00:[facility] No Known Allergies DA Active U 2015-09-11 00:00:00 [facility] Social History Social Habit Start Date Stop Date Quantity Comments Source Sex Assigned At [facility] Medications Ordered Medication Name Filled Medication Name Start Date Stop Da te Current Medication? Ordering Clinician Indication Dosage Frequency Signature (SIG) Comments Components Source Anti-Acid Es Anti-Acid Es Yes 2 Three Times A Day [facility] Hydroxyzine Hcl Hydroxyzine Hcl Yes 10 As Neede d [facility] Metoclopramide Hcl Metoclopramide Hcl Yes 10 Da khari [facility] Pantoprazole Sodium (Protonix) 20 Mg TABLET. Pantopr azole Sodium (Protonix) 20 Mg TABLET. Yes 40 Daily [facility] Vital Signs Vital Name Observation Time Observation Value Comments Source Oxygen saturation by Pulse oximetry 2019-12-22 13:23:00 100 /min [facility] Weight 2019-12-22 11:26:00 175 [lb_av] [facility] BMI (Body Mass Index) 2019-12-22 11:26:00 24.4 kg/m2 [facility] Heart Rate 2019-10-19 17:00:00 73 /min [facility] Respiratory rate 2019-10-19 17:00:00 16 /min [facility] BP Systolic 2019-10-19 17:00:00 115 mm[Hg] [facility] BP Diastolic 2019-10-19 17:00:00 70 mm[Hg] [facility] Body Temperature 2019-10-19 16:30:00 98.9 [degF] [facility] Systolic blood pressure 2019-08-31 03:13:00 128 mm[Hg] Crow Tineo Diastolic blood pressure 2019-08-31 03:13:00 84 mm[Hg] Crow T[facility] Heart rate 2019-08-31 03:13:00 70 /min [place] [facility] Body temperature 2019-08-31 03:13:00 36.5 [place] [facility] Respiratory rate 2019-08-31 03:13:00 19 /min [place] [facility] Oxygen saturation in Arterial blood by Pulse oximetry 08-30 03:13:00 100 /min Crow [facility] Body height 2019-08-31 00:41:00 182.9 cm [facility] Body weight 2019-08-31 00:41:00 97.523 kg [facility] BMI 2019-08-31 00:41:00 29.16 kg/m2 [place] [facility] Weight 2019-08-30 03:15:00 215 [lb_av] [facility] BMI (Body Mass Index) 2019-08-30 03:15:00 29.2 kg/m2 [facility] Procedures Procedure Date / Time Performed Performing Clinician Sourc e EGD BIOPSY SINGLE/MULTIPLE 2019-10-19 00:00:00 [facility] Computed tomography of soft tissues of neck without co ntrast 2019-08-30 00:00:00 [facility] Plan of Care Planned Activity Planned Date Details Comments Source Instructions Back Pain [facility] Encounters Start Date/Time End Date/Time Encounter Type Admission Type Att[facility] Care Department Encounter ID Source 2019-12-22 11:45:00 2019-12-22 13:29:00 Departed Emergency Room 1 Ivis Sosa [facility] [id number] [facility] 2019-10-19 13:28:00 2019-10-19 13:28:00 Registered Surgical Day Care [facility] [id number] [facility] 2019-08-31 00:00:00 2019-08-31 00:00:00 Emergency [facility] JOEL JORY [facility] [id number] [facility] [place] 2019-08-30 04:33:00 2019-08-30 07:22:00 Departed Emergency Room 1 MILES HARGROVE [facility] [id number] [facility] Results Test Description Test Time Test Comments Results Result Comments Source CT SOFT TISSUE NECK W 2019-12-31 12:57:00 [facility] 2000 Sex: M [place] [address] Patient Name: DORY PATRICIA MR #: [id number] : 2000 Age/Sex: 19/M Req #: [id number] [facility] Physician: Ordered by: LUIS ANTONIO SANTOS MD Report #: [id number] Location: CT Room/Bed: Procedure: [id number] CT/CT SOFT TISSUE NECK W Exam Date: 12/31/19 Exam Time: 1205 REPORT STATUS: Signed CT SOFT TISSUE NECK W HISTORY: Neck pain, dysphagia COMPARISON: Neck CT 08/30/2019 TECHNIQUE: Axial CT images were obtained through the neck with intravenous, iodine based contrast. Coronal and sagittal reconstructions obtained from the axial data. One or more of the following dose reduction techniques were used: Automated exposure control, adjustment of the mA and/or kV according to patient size, and/or utilization of iterative reconstruction technique. DISCUSSION: The visualized upper aerodigestive tract is unremarkable. No radiographically significant cervical adenopathy is seen. The thyroid gland is unremarkable. The submandibular and parotid glands are unremarkable. The major cervical vessels are unremarkable. The cashier tube room, parapharyngeal, posterior cervical, and perivertebral spaces are unremarkable. The visualized intracranial compartment and orbits are grossly unremarkable. There is minimal mucosal thickening in the ethmoid air cells. There are minim al degenerative changes throughout the spine. The upper lungs are unremarkable. IMPRESSION: 1. The imaged upper aerodigestive tract is unremarkable. 2. No radiographically significant cervical adenopathy. Signed by: Dr. Tyree Ruiz M.D. on 12/31/2019 1:03 PM Dictated By: TYREE RUIZ MD 02 Transcribed By: KARRIE on 12/31/19 130 COPY TO: LUIS ANTONIO SANTOS MD [facility] 2019-12-22 18:27:00 [facility] 2000 Sex: M [place] [address] Patient Name: DORY PATRICIA MR #: [id number] : 2000 Age/Sex: 19/M Req #: [id number] Adm Physician: Ordered by: LUIS ANTONIO SANTOS MD Report #: [id number] Location: Room/Bed: Procedure: [id number] US/US GALLBLADDER Exam Date: Exam Time: REPORT STATUS: Signed EXAM: Right Upper Quadrant Ultrasound INDICATION: U PPER ABD PAIN COMPARISON: None. TECHNIQUE: Transverse and longitudinal images of the right upper abdomen were obtained. FINDINGS: Liver: Size: 12.2 cm in the right midclavicular line, normal Appearance: Normal echogenicity, smooth contour Mass: No focal masses Gallbladder: Stones/Sludge: Small volume sludge. Wall: 0.2 cm Appearance: No wall thickening, pericholecystic fluid or hydrops. Sonographic Castillo's Sign: Negative Bile Ducts: Intrahepatic Ducts: No dilatation Extrahepatic Ducts: Common bile duct measures 0.2 cm, no dilatation Pancreas: Not well visualized due to shadowing from overlying bowel gas. Kidneys: Length: Right 9.4 cm Echogenicity: Normal Collecting System: No hydronephrosis Stone: None Cyst/Mass: None Vessels: Aorta: Proximal aorta not visualized. Mid to distal aorta unremarkable. Inferior Vena Cava: Visualized portions are normal Main Portal Vein: 0.7 cm, normal size with hep atopetal flow. Free Fluid: No ascites or pleural effusion IMPRESSION: 1. Small volume of sludge. No biliary dilatation. 2. Pancreas not well visualized for diagnostic comment. Signed by: Dr. Debbie Ramirez M.D. on 12/22/2019 6:30 PM Dictated By: EVANGELIST RAMIREZ MD, MD 29 Transcribed By: KARRIE on 12/22/191829 COPY TO: LUIS ANTONIO SANTOS MD CHEST SINGLE (PORTABLE) 2019-12-22 13:02:[address] [facility] 2000 Sex: M [facility] [address] [place] [address] Patient Name: DORY PATRICIA MR #: [id number] : 2000 Age/Sex: 19/M Req #: [id number] Adm Physician: Ordered by: Ivis Sosa MD Report #: [id number] Location: ER Room/Bed: Procedure: [id number] DX/CHEST SINGLE (PORTABLE) Exam Date: 12/22/19 Exam Time: 1200 REPORT STATUS: Signed Chest, 1 view, 12/22/2019. History: Cough and fever. Comparison: None available. Findings: The cardiomediastinal silhouette and pulmonary vasculature are within normal limits for a portable exam. There is no focal consolidation or pleural effusion. There are no acute osseous or soft tissue abnormalities. Impression: No acute cardiopulmonary abnormality. Signed by: Mohsen Myers on 12/22/2019 1:02 PM Dictated By: MOHSEN MYERS MD 01 Transcribed By: KARRIE on 12/22/191301 COPY TO: IVIS SOSA MD URINALYSIS COMPLETE 2019-10-11 19:50:00 Test Item UA [...] FEW A Urine Source? Clean CatchBASIC METABOLIC [id number] 16:52:00* Test Item Value Reference Range Interpretation [...] CA) 9.5 mg/dL 8.5-10.1 N HEPATIC FUNCTION [id number] 16:52:00* Test Item Value Reference Range Interpretation [...] reference range due to change in reagent. [id number] 16:52:00* Test Item Value Reference Range Interpretation Comments LIPASE (test code = LIP) 130 U/L 73.0-393.0 N BASIC METABOLIC [id number] 16:48:00* Test Item Value Reference Range Interpretation [...] code = CA) mg/dL 8.5-10.1 HEPATIC FUNCTION [id number] 16:48:00* Test Item Value Reference Range Interpretation [...] TOTAL (test code = ALKP) IUnit/L 45-117 [id number] 16:48:00* Test Item Value Reference Range Interpretation Comments LIPASE (test code = LIP) U/L 73.0-393.0 CBC W/O [id number] 16:35:00* Test Item Value Reference Range Interpretation [...] MPV) 9.1 fL 6.7-11.0 N CBC W/O [id number] 16:32:00* Test Item Value Reference Range Interpretation [...] code = MPV) fL 6.7-11.0 BASIC METABOLIC [id number] 17:41:00* Test Item Value Reference Range Interpretation [...] code = CA) 9.5 mg/dL 8.5-10.1 N [id number] 17:41:00* Test Item Value Reference Range Interpretation Comments TROPONIN-I (test code = TROPI) <0.015 ng/mL 0-0.045 N BASIC METABOLIC [id number] 17:30:00* Test Item Value Reference Range Interpretation [...] CALCIUM (test code = CA) mg/dL 8.5-10.1 [id number] 17:30:00* Test Item Value Reference Range Interpretation Comments TROPONIN-I (test code = TROPI) ng/mL 0-0.045 CBC W/O [id number] 17:20:00* Test Item Value Reference Range Interpretation [...] fL 6.7-11.0 N - XR CHEST 1 [id number] 17:14:00 FAX: Desiree Diamond [phone] [place]: B St: REG FAX: Tu Shrestha [phone] Name: DORY PATRICIA [facility] : 2000 Age/S: 19/M [address] [facility]: [id number] Loc: [place] [address] Phys: Tu Shrestha MD Acct: [id number] Dis Date: Status: REG ER PHONE #: [phone] Exam Date: 10/03/2019 1709 FAX #: [phone] Reason: CHEST PAIN EXAMS: CPT CODE: [id number] XR CHEST 1 V 43003 EXAM: Chest X-ray, 1 view; CLINICAL HISTORY: Chest pain, anxiety attack; FINDINGS: The lungs are clear, no infiltrates, no edema; no effusions; no pneumothorax; normal cardiomediastinal silhouette. IMPRESSION: Normal chest x-ray. Location code: GW at 1714 Reported and signed by: Hal Flores M.D. CC: Desiree Taylor MD; Tu Shrestha MD chnologist: Ifrah Penn) Trnscrd Date/ Time/By: 10/03/2019 (1713) : By: GisselleGRW [facility] Print D/T: S: 10/03/19 20 (0450) PAGE [address] SOFT TISSUE NECK [id number] 05:18:00 [place] [address] Patient Name: DORY PATRICIA MR #: [id number] : 2000 Age/Sex: 19/M Req #: [id number] Adm Physician: Ordered by: MILES HARGROVE MD Report #: [id number] Location: ER Room/Bed: Procedure: CT/CT SOFT TISSUE NECK WO Exam Date: [...] MILES HARGROVE MD - XR CHEST 1 [id number] 10:55:00 Name: DORY PATRICIA [facility] : 2000 Age/S:19 /M [address] [facility] Unit#:[id number] Loc: [place] [address] Phys: Sarah Riggins MD Dis Date: PHONE #: [phone] Status: REG ER FAX #: [phone] Exam Date: 08/24/2019 Re ason: SOB EXAMS: CPT CODE: [id number] XR CHEST 1 V [id number] REASON FOR EXAM: SOB EXAM ORDER DATE: 08/24/2019 10:13 AM Ordering: Eugenio mejia MD Attending:Eugenio Riggins MD Location:[facility] PROCEDURE: - XR CHEST 1 V COMPARISON: [...] Technologist: Concetta Morrissey RT(R)(CT) Trnscrpt Data: 08/24/2019 (7353) [email or web address] Orig Print D/T: S: 08/24/2019 (1961) PAGE 1 Signed Report URINALYSIS COMPLETE 2019-08-22 [...] Urine Source? Clean CatchDRUGS OF ABUSE SCREEN [id number] 15:31:00* Test Item Value Reference Range Interpretation [...] NEGATIVE NEGATIV E Urine Source? Clean CatchURINALYSIS [id number] 15:29:00* Test Item Value Reference Range Interpretation [...] Urine Source? Clean CatchDRUGS OF ABUSE SCREEN [id number] 15:29:00* Test Item Value Reference Range Interpretation [...] NEGATIV E Urine Source? Clean CatchCOMPREHENSIVE METABOLIC [id number] 14:50:00* Test Item Value Reference Range Interpretation [...] CK) 72 U/L 39-308 N COMPREHENSIVE METABOLIC [id number] 14:44:00* Test Item Value Reference Range Interpretation [...] code = CK) IUnit/L 26-208 CBC W/AUTO [id number] 14:32:00* Test Item Value Reference Range Interpretation [...] = MDIFF) NO - XR CHEST 1 [id number] 14:00:00 Name: DORY PATRICIA [facility] : 2000 Age/S:19 /M [address] [facility] Unit#:[id number] Loc: [place] [address] Phys: Antonieta Chakraborty MD Dis Date: PHONE #: [phone] Status: PRE ER FAX #: [phone] Exam Date: 08/22/2019 Reason: sob, fever EXAMS: CPT CODE: [id number] XR CHEST 1 V 22748 HISTORY: Shortness of breath and fever. COMPARISON: September 27, 2015. Location: . No acute infiltrates, effusion or congestion is noted. The cardiac and mediastinal silhouette are within normal limits. IMPRESSION: No acute infiltrates, effusion or congestion. at 1400 Reported and signed by: Kiko Ramirez M.D. CC: Desiree Taylor MD; Antonieta Chakraborty MD Technologist: Monie Bowser Trnscrpt Data: 08/22/2019 (1400) [email or web address] Orig Print D/T: S: 08/22/2019 (5918) PAGE 1 Signed Report
--- OUTSIDE RECORDS SUMMARY | 2020-01-05 10:35 | XMS REPORT | Clinical Summary ---
Author Author [place] [facility] Address Unknown Phone Unavailable Care Team Providers Care Purchasing Manager/Sales Name Role Phone Asked, No Pcp PCP Unavailable Allergies No Known Active Allergies Medications No known medications Active Problems Not on file Encounters Care Team Description Date Type Specialty Vinay Perez MD Sensation of foreign body (Primary Dx); Anxiety reaction; COVID-19 virus infection 08/31/2019 Emergency Emergency Medicine after 01/04/2019 Social History Date Tobacco Use Types Packs/Day [...] Not on file Results Not on fileafter 01/04/2019 Insurance Type Payer Benefit Subscriber ID Effective Phone Address Plan / Dates Group PPO BCBS BCBS [id number] 2014-P TWIN guaman PPO/ORA SIMMONS PPO [address] [place] (Home) [place] [id number] Advance Directives For more information, please contact: [phone] Patient Scientific Editor Explanation Type Date Recorded Advance Directives, 08/31/2019 1:34 AM Living Will and Medical Power of Urology Surgeon
--- NOTE | 2020-01-05 10:36 | Emergency Department Note ---
History of Present Illnes History of Present Illness Chief Complaint: Genitourinary History of Present Illness This is a 19 year old male Chief Complaint Comment PT STATES HE HAS "WHITE BUMPS" ON HIS PENIS. PT DENIES ANY PENILE DISCHARGE AND STATES THAT HE WAS LAST SEXUALLY ACTIVE IN AUGUST. PT STATES HE HAS NOTICED BUMPS FOR OVER A YEAR AND STATES HE OCCASIONALLY HAS PAIN WITH URINATION, BUT UNSURE. 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 Any updates have been documented here. Past Medical History Recent Fever: No Clinical Suspicion of Infectio: No New/Unexplained Change in Ment: No Past Medical History: Seizure Disorder, GERD Other Medical History: SEIZURES Past Surgical History: None Other Last Tetanus: UTD Review of Systems Review of Systems Constitutional: Reports no symptoms EENTM: Reports no symptoms Cardiovascular: Reports no symptoms Respiratory: Reports no symptoms Gastrointestinal: Reports no symptoms Genitourinary: Reports as per HPI, Reports dysuria Musculoskeletal: Reports no symptoms Integumentary: Reports no symptoms Neurological: Reports no symptoms Psychological: Reports no symptoms Endocrine: Reports no symptoms Hematological/Lymphatic: Reports no symptoms Physical Exam Related Data Allergies: Coded Allergies: famotidine (Verified Allergy, Severe, SWELLING, 12/22/19) Triage Vital Signs Vital Signs Date Time Temp Pulse Resp B/P (MAP) Pulse Ox O2 Delivery O2 Flow Rate FiO2 01/05/20 10:12 98.2 78 20 128/86 100 Room Air Vital signs reviewed: Yes Physical Exam CONSTITUTIONAL Constitutional: Present well-developed, Present well-nourished HENT HENT: Present normocephalic, Present atraumatic, Present oropharynx clear/moist, Present nose normal HENT L/R: Present left ext ear normal, Present right ext ear normal EYES Eyes: Reports PERRL, Reports conjunctivae normal NECK Neck: Present ROM normal PULMONARY Pulmonary: Present effort normal, Present breath sounds normal CARDIOVASCULAR Cardiovascular: Present regular rhythm, Present heart sounds normal, Present capillary refill normal, Present normal rate GASTROINTESTINAL Abdominal: Present soft, Present nontender, Present bowel sounds normal GENITOURINARY Genitourinary: Present penis normal SKIN Skin: Present warm, Present dry MUSCULOSKELETAL Musculoskeletal: Present ROM normal NEUROLOGICAL Neurological: Present alert, Present oriented x 3, Present no gross motor or sensory deficits PSYCHOLOGICAL Psychological: Present mood/affect normal, Present judgement normal Results Laboratory Lab results reviewed: Yes Assessment & Plan Medical Decision Making MDM 19 y.o M presents for bump on penis. Exam shows normal looking penis with out discharge or signs of infection. He requests STD testing and empiric treatment for STD's. Will give Rocephin, Azithro and Flagyl w/ zofran. Appropriate for DC Reassessment Reassessment time: 10:35 Reassessment Well appearing, NAD Assessment & Plan Final Impression: (1) Concern about STD in male without diagnosis Depart Disposition: HOME, SELF-CARE Last Vital Signs Date Time Temp Pulse Resp B/P (MAP) Pulse Ox O2 Delivery O2 Flow Rate FiO2 01/05/20 10:12 98.2 78 20 128/86 100 Room Air Home Meds Reported Medications Hydroxyzine Hcl (HYDROXYZINE HCL) 25 Mg Tablet, 10 MG PO PRN, #30 TAB 10/13/19 [Anti-Acid Es] No Conflict Check, 2 TAB PO TID 10/13/19 Pantoprazole Sodium (PROTONIX) 20 Mg Tablet.dr, 40 MG PO DAILY, #30 TAB 10/13/19 Metoclopramide Hcl (METOCLOPRAMIDE HCL) 10 Mg Tablet, 10 MG PO DAILY, TAB 10/13/19 Medications in the ED Ceftriaxone Sodium 250 mg ONCE ONCE IM ; Start 01/05/20 at 10:30; Stop 01/05/20 at 10:31; Status UNV Azithromycin 1,000 mg ONCE ONCE PO ; Start 01/05/20 at 10:30; Stop 01/05/20 at 10:31; Status UNV Metronidazole 2,000 mg ONCE ONCE PO ; Start 01/05/20 at 10:30; Stop 01/05/20 at 10:31; Status UNV Ondansetron HCl 4 mg ONCE ONCE PO ; Start 01/05/20 at 10:30; Stop 01/05/20 at 10:31; Status UNV IVIS FAJARDO MD 25, 2020 10:36
[2020-01-05] MEDS ORDERED: LIDOCAINE HCL 1% LOCAL INJ 20 ML VIAL ONE (10:44)
[2020-01-05 11:01] LABS: BILIRUBIN,URINE NEGATIVE (NEGATIVE); CLARITY,URINE CLEAR (CLEAR); COLOR,URINE YELLOW (YELLOW); KETONES,URINE NEGATIVE (NEGATIVE); LEUKOCYTE ESTERASE ,URINE NEGATIVE (NEGATIVE); NITRITE,URINE NEGATIVE (NEGATIVE); PROTEIN,URINE DIPSTICK NEGATIVE (NEGATIVE); URINE UROBILINOGEN 0.2 mg/dL (0.2 - 1)
[2020-01-05 11:12] LABS: MUCUS,URINE FEW (RARE); RBC,URINE 0-5 /HPF (0-5); WBC,URINE (MAN) 0-5 /HPF (0-5)
[2020-01-05] MEDS ORDERED: ONDANSETRON HCL 4 MG ORAL DISINTEGRATING TAB ONE (11:48)
== END 2020-01-05 11:35 | disposition home or self-care (01) ==
LOC: ER 10:32
DX: Z20.2 Contact with and (suspected) exposure to infections with a predominantly sexual mode of transmission (principal)
CPT/HCPCS: 81001; 87086; 87491; 87591; 99282; J0696; J2001; Q0162

== ENCOUNTER → 2020-01-17 | Outpatient (CLI) | payer BC | LOC: NM 08:48 | PROVIDERS: ATTEND Internal Medicine Gastroenterology | DX: K82.8 Other specified diseases of gallbladder (principal) | CPT/HCPCS: 78227; A9537 ==

== ENCOUNTER 2020-01-25 13:00 | Emergency (ER) | payer BC ==
[~2020-01-25] VITALS: Ht 180.3 cm; Wt 78.9 kg
[2020-01-25] MEDS ORDERED: DONNATAL/LIDOCAINE/MAALOX 30 ML SUSP PO NR (13:24)
[2020-01-25 15:26] VITALS: BP 139/70
== END 2020-01-25 15:28 | disposition home or self-care (01) ==
LOC: ER 13:15
DX: R07.9 Chest pain, unspecified (principal); K21.9 Gastro-esophageal reflux disease without esophagitis; G40.909 Epilepsy, unspecified, not intractable, without status epilepticus
CPT/HCPCS: 71045; 93005; 99283

== ENCOUNTER → 2020-04-14 | Day surgery (SDC) | payer BC ==
[~2020-04-14] MED LIST changes: +CARAFATE1 GM PO; +FENTANYL CITRATE/PF 100MCG/2 ML INJ ONE; +LIDOCAINE HCL 2% LOCAL INJ 5 ML SDV VIAL INJ ONE; +METOCLOPRAMIDE HCL 10 MG/2ML VIAL ONE; +MIDAZOLAM HCL 2 MG/2 ML VIAL ONE
[2020-04-14 09:45] VITALS: BP 111/80
== END | disposition home or self-care (01) ==
LOC: ENDO 05:50
PROVIDERS: ATTEND Internal Medicine Gastroenterology
DX: K29.50 Unspecified chronic gastritis without bleeding (principal); K20.90 Esophagitis, unspecified without bleeding; K59.09 Other constipation; Z01.812 Encounter for preprocedural laboratory examination; Z20.822 Contact with and (suspected) exposure to COVID-19; Z68.26 Body mass index [BMI] 26.0-26.9, adult
CPT/HCPCS: 43239; 43450; J2001; J2250; J2765; J3010; U0002

== ENCOUNTER 2020-10-24 14:14 | Emergency (ER) | payer BC ==
[~2020-10-24] VITALS: Ht 180.3 cm; Wt 78.9 kg
[~2020-10-24 14:14] MED LIST changes: -FENTANYL CITRATE/PF 100MCG/2 ML INJ ONE; -LIDOCAINE HCL 2% LOCAL INJ 5 ML SDV VIAL INJ ONE; -METOCLOPRAMIDE HCL 10 MG/2ML VIAL ONE; -MIDAZOLAM HCL 2 MG/2 ML VIAL ONE
[2020-10-24] MEDS ORDERED: IBUPROFEN 600 MG TAB PO STA (14:17)
[2020-10-24] MEDS ORDERED: CEFTRIAXONE 500 MG VIAL IM ONE (14:30)
[2020-10-24] MEDS ORDERED: AZITHROMYCIN 250 MG TAB PO ONE (14:30)
[2020-10-24 14:46] LABS: CLARITY,URINE CLEAR (CLEAR); COLOR,URINE YELLOW (YELLOW); KETONES,URINE NEGATIVE (NEGATIVE); LEUKOCYTE ESTERASE ,URINE NEGATIVE (NEGATIVE); NITRITE,URINE NEGATIVE (NEGATIVE); PROTEIN,URINE DIPSTICK NEGATIVE (NEGATIVE); URINE UROBILINOGEN 0.2 mg/dL (0.2 - 1)
[2020-10-24 14:59] LABS: WBC,URINE (MAN) 0-5 /HPF (0-5)
[2020-10-24] MEDS ORDERED: IBUPROFEN600 MG PO (15:28)
== END 2020-10-24 16:13 | disposition home or self-care (01) ==
LOC: ER 14:20
DX: U07.1 COVID-19 (principal); N50.812 Left testicular pain; N50.811 Right testicular pain
CPT/HCPCS: 71045; 81001; 83518; 87070; 99282; J0696; U0002

== ENCOUNTER 2021-01-11 16:55 | Emergency (ER) | payer BC ==
[~2021-01-11] VITALS: Ht 180.3 cm; Wt 78.9 kg
[~2021-01-11 16:55] MED LIST changes: +IBUPROFEN600 MG PO; +KETOROLAC PO; +MIRALAX17 GM PO
[2021-01-11] MEDS ORDERED: LIDOCAINE VISC 2% SOLN 15 ML UDC PO ONE (17:15)
[2021-01-11] MEDS ORDERED: BELLADONNA ALK/PHENOBARBITAL 5 ML UDC PO ONE (17:15)
[2021-01-11] MEDS ORDERED: MAGNESIUM/ALUMINUM/SIMETHICONE 30 ML UDC PO ONE (17:15)
[2021-01-11 17:45] LABS: BASOPHILS % 0.4 % (0.0-1.0); EOSINOPHILS # (AUTO) 0.1 (0.0-0.4); EOSINOPHILS % 1.1 % (0.0-6.0); HEMATOCRIT 46.2 % (38.2-49.6); HEMOGLOBIN 14.8 g/dL (14.0-18.0); LYMPHOCYTES # (AUTO) 1.9 (1.0-3.2); LYMPHOCYTES % 27.2 % (18.0-39.1); MEAN CORPUSCULAR HEMOGLOBIN 27.3 pg (28-32); MEAN CORPUSCULAR VOLUME 85.2 fL (81-99); MONOCYTES # (AUTO) 0.4 (0.2-0.8); NEUTROPHILS # (AUTO) 4.7 (2.1-6.9); NEUTROPHILS % 65.9 % (38.7-80.0); PLATELET COUNT 271 x10e3/uL (140-360); RED BLOOD COUNT 5.42 x10e6/uL (4.3-5.7); RED CELL DISTRIBUTION WIDTH 13.5 % (11.7-14.4)
[2021-01-11 18:04] LABS: AMYLASE 63 U/L (25-125); LIPASE 21 U/L (8-78)
[2021-01-11 18:06] LABS: ALBUMIN 4.4 g/dL (3.5-5.0); ALBUMIN/GLOBULIN RATIO 1.5 (0.8-2.0); ANION GAP 14.8 mmol/L (8-16); CALCIUM 9.4 mg/dL (8.4-10.2); CREATININE, SERUM 0.99 mg/dL (0.72-1.25); POTASSIUM 3.8 mmol/L (3.5-5.1)
== END 2021-01-11 19:00 | disposition home or self-care (01) ==
LOC: ER 17:11
DX: R10.13 Epigastric pain (principal); K29.70 Gastritis, unspecified, without bleeding; K21.9 Gastro-esophageal reflux disease without esophagitis; G40.909 Epilepsy, unspecified, not intractable, without status epilepticus
CPT/HCPCS: 36415; 80053; 82150; 83690; 85025; 99283; C9113

== ENCOUNTER → 2021-01-12 | Day surgery (SDC) | payer BC ==
[~2021-01-12] MED LIST changes: +FENTANYL CITRATE/PF 100MCG/2 ML INJ ONE; +LIDOCAINE HCL 2% LOCAL INJ 5 ML SDV VIAL INJ ONE; +MIDAZOLAM HCL 2 MG/2 ML VIAL ONE; +ONDANSETRON HCL INJ 2MG/ML 2ML 2 MG/ML VIAL ONE; +POVIDONE IODINE 0.05% 0.05 % ML PO ONE; +PROPOFOL IV EMULSION 10 MG/ML 20 ML VIAL ONE
[2021-01-12 08:35] VITALS: BP 116/70
[2021-01-16 05:11] LABS: ENDOMYSIAL ANTIBODIES, IGA Negative (Negative)
== END | disposition home or self-care (01) ==
LOC: ENDO 06:11
PROVIDERS: ATTEND Internal Medicine Gastroenterology
DX: K22.10 Ulcer of esophagus without bleeding (principal); K29.50 Unspecified chronic gastritis without bleeding; K44.9 Diaphragmatic hernia without obstruction or gangrene; K22.89 Other specified disease of esophagus; K21.9 Gastro-esophageal reflux disease without esophagitis; K58.9 Irritable bowel syndrome, unspecified; Z88.8 Allergy status to other drugs, medicaments and biological substances; Z68.29 Body mass index [BMI] 29.0-29.9, adult; Z86.16 Personal history of COVID-19
CPT/HCPCS: 43239; 43450; 82784; 83516; 86256; C9113; J2001; J2250; J2405; J2704; J3010